=== PATIENT | male | born 1995 | race Caucasian/White ===

== ENCOUNTER 2024-01-26 23:23 | Emergency (ER) | payer MEDICAID ==
[~2024-01-26] VITALS: Ht 180.3 cm; Wt 72.0 kg
[2024-01-26 23:32] VITALS: PULSE 113; RESP 20; TEMP 98; O2SAT 98
[2024-01-26] MEDS ORDERED: LIDOcaine 2% Viscous 15ml cup MM PRN (23:40)
[2024-01-27] MEDS ORDERED: LIDO15SO9 (00:03)
== END 2024-01-27 00:14 | disposition home or self-care (01) ==
LOC: ER 23:25
DX: T26.92XA Corrosion of left eye and adnexa, part unspecified, initial encounter (principal); T26.91XA Corrosion of right eye and adnexa, part unspecified, initial encounter; Z79.899 Other long term (current) drug therapy; Y93.89 Activity, other specified; Y92.89 Other specified places as the place of occurrence of the external cause; Y99.8 Other external cause status
CPT/HCPCS: 99283